=== PATIENT | male | born 1985 | race Caucasian/White ===

== ENCOUNTER 2024-07-07 09:25 | Day surgery (SDC) | payer OTHER, SELFPAY ==
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
--- OUTSIDE RECORDS SUMMARY | 2024-06-05 02:43 | XMS_ITS ---
Author Organization [facility] Address [address] [place] [address] Care Team Providers Care Proposal Engineer Name Role Phone LILIANA COVARRUBIAS Primary Care Provi alejandra Unavailable Bubba Bal Unavailable [phone] ALLERGIES No Known Allergies REASON FOR VISIT Patient presents today for a FAMILY HISTORY OF COLON CANCER MEDICATIONS Medication SIG (Take, Route, Fr equency, [...] screening (Z12.11) Active confirmed Colon cancer screening (721787947) Problem Encounter for other preprocedural examination (Z01.818) Active confirmed Pre-procedure evaluation check (015055031) Problem Family history of colon cancer (Z80.0) Active confirmed Family History of Cancer of Colon (Situation) (115782954) Problem Family history of colonic polyps (Z83.719) Active confirmed VITAL SIGNS BMI 29.70 kg/m2 03/11/2024 Blood pressure systolic 00 mm Hg 03/11/20 24 Blood pressure diastolic 00 mm Hg 024 Height 5 ft 10 in in 03/11/2024 Weight 207 lbs 03/11/2024 Encounters Encounter Location Date Provider Diagnosis [facility] [address] [place] [address] 03/11/2024 Bubba Bal Colon cancer screeni ng [...] polyps (ICD-10 - Z83.719) PLAN OF TREATMENT Treatment Notes Assessment Notes Colon cancer screening Stop fish oil for 1 week before the colonoscopy Future Test Test Name Order Date COLONOSCOPY 03/11/2024 Next Appt Details Follow Up: prn, Reason: Provider Name:Bubba Bal , 07/07/2024 10:30:00 AM, [address] [place] [address], [phone], Progress Notes * Examination Category Sub-Category Detail Notes General Examination GENERAL APPEARANCE: pleasant , well nourished, well developed, in no acute distress HEAD: EYES: sclera non-icteric EARS: NOSE: THROAT: NECK/THYROID: no cervical lymphade nopathy, neck supple HEART: S1, S2 normal CHEST: LUNGS: clear to auscultatio n bilaterally ABDOMEN: normal bowel sounds, no guarding or rigidity, no guarding or rigidity, no masses palpable, soft, nontender, nondistended NEUROLOGIC: alert and oriented SKIN: nonjaundiced, no spi alejandra angiomata EXTREMITIES: no edema PERIPHERAL PULSES: BACK: BREASTS: MUSCULOSKELETAL: MALE GENITOURINARY: LYMPH NODES: RECTAL EXAM: FEMALE GENITOURINARY: ORAL CAVITY: mucosa moist
[2024-07-03 14:01] VITALS: BMI 29.7
--- NOTE | 2024-07-04 09:53 | HO.ANESPROP2 ---
Documented by User: Padmini Spence NP 07/04/24 09:53 HPI - Anesthesia Eval Consult details Narrative: 38yo M for Colonoscopy [facility] Past Medical History Medical History Family history of colon cancer Surgical History Surgical History Hx of foot surgery Social History Social History Advance Directives: No Advance Directives Information Provided: Yes Meds Allergies Allergy/AdvReac Type Severity Reaction Status Date / Time No Known Allergies Allergy Verified 07/03/24 14:03 Home Medications ?Medication ?Instructions ?Recorded ?Confirmed ?Last Taken ?Type multivitamin 1 tab PO QAM 07/03/24 07/03/24 Unknown History omega-3 fatty acids-fish oil 360 1 cap PO DAILY 07/03/24 07/03/24 Unknown History mg-1,200 mg capsule (Fish Oil) Exam Height,Weight and Vital Signs: Height 5 ft 10 in Weight 93.894 kg Assessment and Plan Assessment Anesthesia Assessment: Chart Reviewed Documented by User: Vianey Whitfield MD 07/07/24 09:56 [facility] Past Medical History Medical History Family history of colon cancer Surgical History Surgical History Hx of foot surgery History of Problems with Anesthesia: No Social History Social History Advance Directives: No Advance Directives Information Provided: Yes Meds Allergies Allergy/AdvReac Type Severity Reaction Status Date / Time No Known Allergies Allergy Verified 07/03/24 14:03 Home Medications ?Medication ?Instructions ?Recorded ?Confirmed ?Last Taken ?Type multivitamin 1 tab PO QAM 07/03/24 07/03/24 Unknown History omega-3 fatty acids-fish oil 360 1 cap PO DAILY 07/03/24 07/03/24 Unknown History mg-1,200 mg capsule (Fish Oil) Exam Airway Mallampati Class: II TM Dist: >3cm Neck ROM: Full Loose/Missing/Broken Teeth: No Heart: RRR Lungs: CTA Assessment and Plan Assessment Anesthesia Assessment: Anesthesia Plan Discussed Final Anesthetic Review History of Problems with Anesthesia: No NPO: Yes ASA Class: I Final Preanesthetic Review: Meds/Allgs Chart Reviewed, Consent Obtained/Reviewed and Anes Risks/Benef Reviewed Patient Risk: Low Procedure Risk: Low Anesthetic Plan Anesthetic Plan: MAC: Disposition: Standard PACU
[2024-07-07 09:41] VITALS: BP 122/67; PULSE 68; RESP 20; TEMP 36.9; O2SAT 98
[2024-07-07] MEDS: Lactated Ringers 1,000 ML 100 ML IVCONT (09:48)
--- OUTSIDE RECORDS SUMMARY | 2024-07-07 10:11 | XMS_ITS ---
Author Organization [facility] Address [address] [place] [address] Care Team Providers Care Access Representative Name Role Phone LILIANA COVARRUBIAS Primary Care Provi alejandra Unavailable Bubba Bal Unavailable [phone] ALLERGIES No Known Allergies REASON FOR VISIT [...] screening (Z12.11) Active confirmed Colon cancer screening (121719420) Problem Encounter for other preprocedural examination (Z01.818) Active confirmed Pre-procedure evaluation check (024744405) Problem Family history of colon cancer (Z80.0) Active confirmed Family History of Cancer of Colon (Situation) (842460805) Problem Family history of colonic polyps (Z83.719) Active confirmed VITAL SIGNS BMI 29.70 kg/m2 03/11/2024 Blood pressure systolic 00 mm Hg 03/11/20 24 Blood pressure diastolic 00 mm Hg 024 Height 5 ft 10 in in 03/11/2024 Weight 207 lbs 03/11/2024 Encounters Encounter Location Date Provider [facility] [address] [place] [address] 03/11/2024 Bubba Bal Colon cancer screeni ng [...] Provider Name:Bubba Bal , 07/07/2024 10:30:00 AM, [address] [place] [address], [phone], Progress Notes * Examination Category Sub-Category Detail [...]
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
[2024-07-07 11:55] VITALS: BP 90/41; PULSE 63; RESP 18; TEMP 36.8; O2SAT 97
--- NOTE | 2024-07-07 12:05 | PM.OP ---
Brief Operative Note Date of Service: 07/07/24 Pre-op diagnosis: Screening Post-op diagnosis: other (Polyp) Procedure: Colonoscopy to the cecum and TI with hot snare polypectomy x 1 with placement of 2 submucosal ink starr and 1 resolution clip. Surgeon: Bubba Bal MD Anesthesia: MAC Was an Industrial Engineer used for this Procedure?: No Estimated blood loss (mL): 0 Pathology: other (A. Polyp at 15cm) Condition: stable Disposition: PACU
[2024-07-07 12:10] VITALS: BP 100/53; PULSE 60; RESP 17; O2SAT 98
[2024-07-07 12:25] VITALS: BP 113/52; PULSE 59; RESP 16; TEMP 36.8; O2SAT 97
[2024-07-07 12:45] VITALS: BP 113/52; PULSE 63; RESP 16; TEMP 36.8; O2SAT 97
--- NOTE | 2024-07-07 14:07 | OP_ITS ---
DATE OF SERVICE: 07/07/2024 SURGEON: Bubba Bal MD INDICATIONS: The patient presents for evaluation of colorectal cancer screening in regard to significant family history of colon cancer and colon polyps. Full consent obtained from him for the procedure, including risks of bleeding and perforation. PREOPERATIVE DIAGNOSIS: Colorectal cancer screening, family history of colon cancer, family history of colon polyps. POSTOPERATIVE DIAGNOSIS: Colorectal cancer screening, family history of colon cancer, family history of colon polyps, colon polyp, internal hemorrhoids. PROCEDURE PERFORMED: Colonoscopy to the cecum and terminal ileum with hot snare polypectomy, placement of submucosal ink starr, and placement of 1 resolution clip onto the polypectomy site. ESTIMATED BLOOD LOSS: COMPLICATIONS: ANESTHESIA: Monitored anesthesia care. ASSISTANTS: SPECIMENS: DESCRIPTION OF PROCEDURE: The patient was placed in the left lateral decubitus position. The digital rectal exam revealed no abnormalities. The [employer] video pediatric colonoscope was entered into the rectum and advanced easily to the cecum. Once in the cecum, I did identify normal-appearing cecal pouch with appendiceal orifice and normal-appearing ileocecal valve. The terminal ileum was cannulated and appeared normal. The scope was withdrawn back in the colon. The entire cecum and ileocecal valve appeared normal. The scope was then slowly withdrawn assessing all mucosal surfaces carefully. Preparation was excellent. At 15 cm, was an approximately 1.5 to 2.0 cm polyp on a stalk. The polyp was somewhat ulcerated. The polyp was removed at the base of the stalk with the hot snare polypectomy and then recovered by withdrawing it from the patient on the tip of the scope. The scope was advanced back to the polypectomy site at 15 cm. The polypectomy site appeared clean, without any sign of residual polyp nor bleeding. A submucosal ink dominick was placed adjacent to the polyp on each side. I then placed a single resolution clip onto the polypectomy site with good deployment and good hemostasis. I did not visualize any other polyps, colitis, nor angiodysplasia. In the rectum, scope was retroflexed visualizing internal hemorrhoids, but no other pathology. The rectal mucosa appeared normal. The scope was straightened and withdrawn from the patient. He tolerated the procedure well and was returned to recovery area in stable condition. IMPRESSION: 1. Colon polyp. 2. Internal hemorrhoids. PLAN: The results of the pathology will be checked. If the polyp is simply adenomatous without any dysplasia or other worrisome features, I would then recommend a followup colonoscopy in 2 to 3 years. If there is any evidence of significant dysplasia or certainly intramucosal carcinoma, we would then want to proceed with a sooner colonoscopy. He was advised not to use any aspirin and NSAIDs for 2 weeks. He will see me otherwise on a p.r.n. basis. This has been discussed with his significant other. MD LYRIC Siegel/MARY KAY / [id number]
== END 2024-07-07 13:21 | disposition home or self-care (01) ==
PROVIDERS: Visit Provider Internal Medicine
PROC: 0DJD8ZZ Inspection of Lower Intestinal Tract, Via Natural or Artificial Opening Endoscopic (ICD-10-PCS; CPT 45378; principal; 2024-07-07 10:30)
DX: Z12.11 Encounter for screening for malignant neoplasm of colon (principal); Z83.710 Family history of adenomatous and serrated polyps; Z80.0 Family history of malignant neoplasm of digestive organs; D12.7 Benign neoplasm of rectosigmoid junction; K64.8 Other hemorrhoids; Z79.899 Other long term (current) drug therapy; Z87.81 Personal history of (healed) traumatic fracture
CPT/HCPCS: 45385; 45381; 88305; J2003; J2704